=== PATIENT | female | born 1950 | race Caucasian/White ===

== ENCOUNTER 2018-10-08 13:08 | Inpatient (IN) | payer OTHER ==
[~2018-10-08] VITALS: Ht 160 cm; Wt 102.1 kg
--- NOTE | ~2018-10-08 | OP ---
[address] [address] OPERATIVE REPORT Name: MEGGAN HULL Room: [address] IN M.R.#: [id number] Admission: 10/08/18 Attend Phys: Martin Peña MD Discharge: 10/10/18 Date of : 50 Report #: [id number] THIS REPORT FOR: //name// CC: Tiara Peña DICTATED BY: Reinaldo Baker DO DATE OF SERVICE: 10/10/2018 This is Reinaldo Baker DO, PGY-2 dictating for Harika Perera DO PREOPERATIVE DIAGNOSIS: Gallstone pancreatitis. POSTOPERATIVE DIAGNOSES: Gallstone pancreatitis and acute cholecystitis with cholelithiasis. FINDINGS: Large stone in the gallbladder, CBD and hepatic ducts were dilated, but without obstruction. SURGEON: Harika Perera DO. CO-SURGEON: Reinaldo Baker DO, PGY-2. CYBER INSTRUCTOR: Luis Manuel Resendiz MS3. OPERATION PERFORMED: Laparoscopic cholecystectomy with intraoperative cholangiogram and surgeon interpretation of images. ANESTHESIA TYPE: General and local. ESTIMATED BLOOD LOSS: 20. SPECIMEN: Gallbladder. COMPLICATIONS: None. CONDITION: Stable. DISPOSITION: PACU to floor with possible discharge once tolerating diet, pain controlled with p.o. meds and ambulates. INDICATION FOR PROCEDURE: The patient is a pleasant 68-year-old female who presented to [facility] with chief complaint of right upper quadrant and epigastric abdominal pain. The patient was found to have gallstone pancreatitis with elevated lipase and LFTs. Her LFTs and lipase trended down [facility] [address] [place] [address] OPERATIVE REPORT Name: LU DOMINGUEZMEGGAN Room: [address] IN [facility].#: [id number] Admission: 10/08/18 Attend Phys: Martin Peña MD Discharge: 10/10/18 Date of : 50 Report #: [id number] over the next 2 days. The patient had an MRCP that showed cholecystitis with cholelithiasis without obstruction. The patient was subsequently recommended laparoscopic cholecystectomy with intraoperative cholangiogram and the patient agreed. Full discussion of procedure, alternatives, risks and possible complications discussed include but not limited to bleeding, infection, postoperative pain, scarring, hernia, conversion to open procedure, injury to other abdominal organs mainly stomach, bile ducts and liver, if bile duct injury were to occur, transfer to tertiary care facility for possible further surgical intervention by hepatobiliary specialist and anesthesia risks. The patient voiced understanding of the risks and agreed to proceed with surgery. OPERATIVE TECHNIQUE: The patient was again seen and examined in preoperative holding. Fully informed written consent was obtained. Preoperative antibiotics 600 mg of clindamycin was given. The patient was subsequently transported to the operating room suite, placed on the operating room table in supine position. At this time, anesthesia induced general endotracheal intubation and general anesthesia was successful. A footboard was placed at the feet, bilateral lower extremity SCDs were placed to calves. The patient's left arm was placed on arm boards out at the side, right arm was tucked, all the patient's extremities and joints were padded and protected. The patient was prepped and draped using standard sterile fashion. Time-out was performed prior to the onset of procedure began. The patient has a reducible umbilical hernia. A 10 mL of 0.5% Marcaine was injected superior to the umbilicus. Vertical skin incision was made superior to the umbilicus. Using open Mauricio technique, we dissected down through dermis and subcutaneous tissue to reach the level of the fascia. Fascia was grasped with bilateral Kochers, elevated and transected with electrocautery. After this was performed, the peritoneum was pierced using a hemostat. A finger sweep was performed to ensure we were into the abdomen and there were no adhesions. Two 0 Vicryl stay sutures were placed on the fascial edges, 12 mm Chaim trocar was placed into the abdomen. The abdomen was insufflated, first using low flow then high flow. The patient was placed in reverse Trendelenburg with left side down. A 5 mm laparoscopic 0 degree camera was placed into the abdomen, noting no injury to underlying structures on entry into the abdomen. We surveyed the right upper quadrant. There was noted to be dense omental adhesions over the liver as well as omental adhesions to the right upper quadrant just inferior to the costal margin, 10 mm trocar was placed in the epigastric region, two additional 5 mm trocars were placed in the right upper quadrant. Right upper quadrant adhesions were taken down as well as omental adhesions over the liver. Gallbladder was grasped with a locking wavy grasper, elevated anteriorly and cephalad. Peritoneal and omental attachments were taken down using electrocautery to the level of Taras's pouch. Gallbladder was noted to be very distended, very edematous with lots of edema and acute inflammation. Once Taras's pouch was noted, it was grasped with the blunt grasper. Dissection was began anterior aspect and lateral edge of the gallbladder peritoneum. This was taken using electrocautery. Dissection was carried out laterally to the liver edge. Cystic duct [place] [address] OPERATIVE REPORT Name: MEGGAN HULL Room: [address]#: [id number] Admission: 10/08/18 Attend Phys: Martin Peña MD Discharge: 10/10/18 Date of : 50 Report #: [id number] dissected out circumferentially. Once the cystic duct was dissected out with [place] grasper circumferentially, they noted that the cystic artery was just anterior and medial to this in the gallbladder peritoneal fat. This was also dissected out circumferentially with [place] grasper. At this time, a Brunson clamp was placed across the inferior aspect of Taras's pouch and catheter was placed into the cystic duct. Intraoperative cholangiogram was obtained noted a grossly dilated common bile duct with normal filling of the common bile duct, hepatic ducts both intra and extrahepatic as well as the cystic duct. There was noted to be flow into the duodenum. I did not see any causes of obstruction or retained stones. C-arm was removed from the bedside. Gallbladder was grasped and elevated again. Clips were then placed to the distal cystic duct x 3 proximally near the gallbladder x 2. This was also clipped of the cystic artery distally twice, proximally once. Cystic duct and artery were then transected using laparoscopic scissors. Gallbladder was then resected off of the liver bed using electrocautery. There was a very large what appeared to be the right hepatic artery near the posterior aspect of the gallbladder, posterior Taras's pouch, this was gently dissected superior to this using [place] grasper. There was noted to be a small branch coming off of the right hepatic artery that traversed posteriorly into the gallbladder. This was clipped distally and proximally and transected using electrocautery. The remainder of the dissection was carried out to excise the gallbladder from the gallbladder fossa. Gallbladder was then placed in a 10 mm EndoCatch bag through the umbilical trocar. Once this was obtained, liver bed was evaluated and hemostasis was achieved using electrocautery. Duct and artery clips were then reevaluated and noted to be no hemorrhaging or bile ducts from these. Intraoperative pictures were taken. Of note, critical view of safety was obtained prior to cholangiogram and clipping and transection of the cystic duct and artery and an intraoperative picture of the critical view of safety was obtained as well. Surgicel was placed in the gallbladder fossa. Right upper quadrant was copiously irrigated and suctioned. We then used laparoscopic camera through the epigastric trocar to evaluate the patient's reducible umbilical hernia. Intraoperative picture of this was also obtained. Her abdomen was desufflated under direct visualization, epigastric and right upper quadrant trocars were removed. Once the abdomen was fully desufflated, the Chaim trocar was removed and EndoCatch bag with the gallbladder was then pulled through the umbilical incision noting to be a very large approximately 5 x 4 cm stone in the gallbladder. Kochers were again placed on the fascial edges. Fascia was closed using 0 Vicryl on a UR-6 in a [id number]-[id number] fashion. Layered closure was then performed with 3-0 interrupted Vicryl closing the subcutaneous and deep dermal layers. Skin was closed using running 4-0 Monocryl. Dermal stitch with 3-0 Vicryl was placed in the epigastric incision. This was closed with 2 interrupted Monocryl and the two 5 mm right upper quadrant incisions were closed using interrupted 4-0 Monocryl. An additional 40 mL of 0.5% Marcaine was used for local anesthetic. Abdomen was cleansed using wet and dry lap, sterile dressing applied, Dermabond. The patient tolerated the procedure well and was extubated in the OR, transported to PACU in [address] [address] OPERATIVE REPORT Name: MEGGAN HULL Room: [address] IN [facility].#: [id number] Admission: 10/08/18 Attend Phys: Martin Peña MD Discharge: 10/10/18 Date of : 50 Report #: [id number] condition after brief recovery from anesthesia with plans to return to the floor for ongoing care with plans to possible discharge later this evening as long as the patient tolerates diet, pain control with p.o. meds and is able to ambulate. She will follow up in the office of Dr. Perera in 1 week. By: 1620 1750Chrudi Perera DO /nt
--- NOTE | ~2018-10-08 | CON ---
[address] [address] CONSULTATION Name: MEGGAN HULL Room: [address] IN .R.#: [id number] Admission: 10/08/18 Attend Phys: Martin Peña MD Discharge: Date of : 50 Report #: [id number] THIS REPORT FOR: //name// CC: Tiara Peña DICTATED BY: Mikki Camara [facility] DATE OF SERVICE: 10/09/2018 Please note, at the time of this dictation, the patient was seen and physically examined by myself. REASON FOR CONSULTATION: Abdominal pain, elevated LFTs. HISTORY OF PRESENT ILLNESS: This is a 68-year-old female presenting to the Emergency Room with right upper quadrant pain, nausea and vomiting, which has been worsening over the last couple of days. She states her pain is exacerbated with eating. She has had similar pains before and was told that was likely her gallbladder. She denies any fever or chills at this time. The patient has had an upper scope, which was done back in the 1980s in [place], [place], does not recall what it showed and she has never had a screening colonoscopy. ALLERGIES: PENICILLIN AND LATEX. MEDICATIONS: From home include Claritin, Joint Health Vitamin, a memory pill, B12, guaifenesin, vitamin D, aspirin. PAST MEDICAL HISTORY: Essentially negative. FAMILY HISTORY: Negative. SOCIAL HISTORY: Denies any alcohol, tobacco or illegal drug use. FAMILY HISTORY: Negative for any GI or female cancers. REVIEW OF SYSTEMS: Twelve-point review of systems is essentially negative except what is mentioned in the HPI. PHYSICAL EXAMINATION: VITAL SIGNS: Temperature 36.5, pulse 70, respirations 16, blood pressure 151/75. HEART: Regular rate and rhythm. LUNGS: Clear. ABDOMEN: Soft, positive bowel sounds in all 4 quadrants [place] [address] CONSULTATION Name: MEGGAN HULL Room: [address] IN [facility]#: [id number] Admission: 10/08/18 Attend Phys: Martin Peña MD Discharge: Date of : 50 Report #: [id number] tenderness noted. LABORATORY DATA: Hemoglobin 12.5, white count 7.8, platelets 210. PT 10.7, INR is 1, GFR is 55. On admission, total bilirubin 2.1, it is down to 0.5; alkaline phosphatase was 116, down to 99; ALT 565, down to 382; and AST 683, down to 216. CT of the abdomen and pelvis shows some edema around the gallbladder, but no stranding or any abnormality of the pancreas. Ultrasound revealed common bile duct to be in 4.9-6.6 mm in diameter, upper limit of normal. Liver appeared to be normal with some fatty infiltration. Pancreas appeared normal. There were several large stones that was noted in the gallbladder as well. IMPRESSION: 1. Right upper quadrant pain, resolved. 2. Nausea and vomiting, resolved. 3. Elevated LFTs. 4. Elevated lipase. 5. Acute cholecystitis. PLAN: 1. MRCP pending and depending on the results, we can make further recommendations. 2. We will keep patient n.p.o. until results of MRCP have been reviewed. 3. Further recommendations to be made once Dr. Huggins sees the patient and has reviewed the MRCP. Thank you for allowing us to participate in this patient's care. Please do not hesitate to call with any questions in regard to this consult. ADDENDUM I personally seen and examined the patient and reviewed labs and imaging studies. The patient reports that her symptoms started couple of days prior to admission, which was included with severe abdominal pain, which was acute associated with nausea and vomiting. She presented with evidence of cholecystitis and her bilirubin initially was 2, but now back to normal. She also has transaminitis. The patient had an ultrasound, which showed mildly dilated common bile duct to 6.6 mm. MRCP was done today, which shows completely normal bile duct without any evidence of choledocholithiasis. She currently denies any abdominal pain, nausea, and vomiting. Her AST and ALT are almost half of yesterday, still with value of 216 and 382. Her lipase is down to normal, down from 3092. The patient should proceed with laparoscopic cholecystectomy[place] [address] CONSULTATION Name: MEGGAN HULL Room: [address] IN ..#: [id number] Admission: 10/08/18 Attend Phys: Martin Peña MD Discharge: Date of : 50 Report #: [id number] recommend colonoscopy as she never had a screening colonoscopy. This will occur on outpatient basis. By: 1210 2316Jak Huggins MD /emilie
[2018-10-08 13:11] VITALS: BP 173/105
[2018-10-08] MEDS ORDERED: CLARITIN10 M2 PO (13:17)
[2018-10-08] MEDS ORDERED: JOINT HEALTH T1 EACH PO (13:18)
[2018-10-08] MEDS ORDERED: [UNRECOGNIZED DRUG - REMARK] PO (13:18)
[2018-10-08] MEDS ORDERED: VITAMIN B 12 PO (13:19)
[2018-10-08] MEDS ORDERED: MUCINEX100 MG PO (13:19)
[2018-10-08] MEDS ORDERED: MULTIVITAMINS1 EAC7 PO (13:20)
[2018-10-08] MEDS ORDERED: VITAMIN D-3 PO (13:20)
[2018-10-08] MEDS ORDERED: ASPIR 8181 MG PO (13:21)
[2018-10-08 13:45] LABS: ABSOLUTE BASOPHILS 0.1 thou/uL (0.0-0.2); ABSOLUTE LYMPHOCYTES 1.7 thou/uL (0.8-5.3); ABSOLUTE MONOCYTES 0.5 thou/uL (0.0-1.2); ABSOLUTE NEUTROPHILS 5.8 thou/uL (1.6-8.1); EOSINOPHILS 0.3 %; HEMATOCRIT 42.7 % (37.0-47.0); HEMOGLOBIN 14.5 gm/dL (12.0-15.0); LYMPHOCYTES 21.1 %; MCH 30.5 pg (26.0-34.0); MCV 89.6 fL (80.0-100.0); MONOCYTES 6.7 %; MPV 9.1 fl. (7.2-11.1); NUCLEATED RBCS 0 /100WBC; PLATELET COUNT* 261 thou/uL (150-400); POLYS 70.9 %; RBC 4.77 mil/uL (4.20-5.00); WBC 8.2 thou/uL (4.0-11.0)
[2018-10-08 14:00] LABS: ALBUMIN 3.4 g/dL (3.4-5.0); CALCIUM 8.6 mg/dL (8.5-10.1); CREATININE 0.9 mg/dL (0.6-1.3); POTASSIUM 3.9 mmol/L (3.5-5.1); TOTAL BILIRUBIN 2.1 mg/dL (<0.1-1.0)
[2018-10-08 15:28] LABS: URINE BILIRUBIN NEGATIVE (Negative); URINE BLOOD NEGATIVE (Negative); URINE CLARITY CLEAR; URINE COLOR YELLOW; URINE GLUCOSE-RANDOM NEGATIVE (Negative); URINE KETONES NEGATIVE (Negative); URINE LEUKOCYTES-REFLEX NEGATIVE (Negative); URINE NITRITE-REFLEX NEGATIVE (Negative); URINE PROTEIN NEGATIVE (Negative); URINE UROBILINOGEN 0.2 E.U./dl (0.2-1.0)
--- NOTE | 2018-10-08 16:54 | EKG ---
[place] [address] ELECTROCARDIOGRAM REPORT Name: MEGGAN HULL Room: [facility]#: [id number] Admission: 10/08/18 Attend Phys: Discharge: Date of : 50 Report #: [id number] THIS REPORT FOR: //name// [facility] ED Test Date: 2018-10-08 Test Time: 13:45:01 Pat Name: MEGGAN DOMINGUEZ Department: Room: Gender: F Skilled Nursing Facility Counselor: : 1950 Requested By: Chrystal Alcala Order Number: [id number] MD: Luis Manuel Jeffrey Measurements Intervals [place] Rate: 68 P: 73 VT: 171 QRS: 53 QRSD: 84 T: 50 QT: 409 QTc: 436 Interpretive Statements Sinus rhythm No previous ECG available for comparison Electronically Signed On 10-08-2018 16:54:13 CDT by Luis Manuel Jeffrey [email or web address] <ELECTRONICALLY SIGNED> By: Luis Manuel Jeffrey MD, [facility] 10/08/18 1654 1345 1345 Luis Manuel Jeffrey MD, FACC /EPI
[2018-10-08 18:53] VITALS: BP 113/60
[2018-10-08 21:20] VITALS: BP 151/75
[2018-10-08 21:22] VITALS: BP 138/65
[2018-10-08 21:30] VITALS: BP 151/75
[2018-10-08 21:47] LABS: AMP/METHAMP Negative (Negative); BARBITURATES Negative (Negative); BENZODIAZEPINES Negative (Negative); COCAINE Negative (Negative); METHADONE Negative (Negative); OPIATES POSITIVE (Negative); PCP Negative (Negative); THC Negative (Negative)
[2018-10-09 04:09] LABS: ABSOLUTE BASOPHILS 0.1 thou/uL (0.0-0.2); ABSOLUTE EOSINOPHILS 0.2 thou/uL (0.0-0.7); ABSOLUTE LYMPHOCYTES 2.7 thou/uL (0.8-5.3); ABSOLUTE MONOCYTES 0.5 thou/uL (0.0-1.2); ABSOLUTE NEUTROPHILS 4.4 thou/uL (1.6-8.1); BASOPHILS 0.7 %; EOSINOPHILS 2.5 %; HEMATOCRIT 36.9 % (37.0-47.0); MCH 30.5 pg (26.0-34.0); MCHC 33.8 g/dL (28.0-37.0); MCV 90.1 fL (80.0-100.0); MONOCYTES 6.9 %; MPV 9.1 fl. (7.2-11.1); NUCLEATED RBCS 0 /100WBC; PLATELET COUNT* 210 thou/uL (150-400); POLYS 55.9 %; RBC 4.09 mil/uL (4.20-5.00); RDW-CV 13.3 % (10.5-14.5); WBC 7.8 thou/uL (4.0-11.0)
[2018-10-09 04:22] LABS: APTT 27.1 Seconds (25.0-31.3); PROTIME 10.7 Seconds (9.20-11.50)
[2018-10-09 04:53] LABS: HEMOGLOBIN 12.5 gm/dL (12.0-15.0)
--- NOTE | 2018-10-09 05:27 | NUR ---
PT ARRIVED ON UNIT FROM ER AT 2130 ASSISTED TO ROOM ORIENTED TO SUROUNDINGS. VS AND ASSESSMENT STABLE PT HAD ZOFRAN ONCE FOR NAUSEA AND REQUESTED SOMETHING FOR A HEADACHE CONTACTED DR HATCH OBTAINED ORDERS FOR X1. NO FURTHER COMPLAINTS. WILL CONTINUE PLAN OF CARE.
[2018-10-09 08:00] VITALS: BP 138/54
[2018-10-09 10:42] LABS: ALBUMIN 2.7 g/dL (3.4-5.0); ALKALINE PHOSPHATASE 99 U/L (46-116); ANION GAP 5 mmol/L (7-16); BUN 11 mg/dL (7-18); CALCIUM 7.6 mg/dL (8.5-10.1); CHLORIDE 110 mmol/L (98-107); CO2 31 mmol/L (21-32); DIRECT BILIRUBIN 0.1 mg/dL (<0.1-0.3); GLUCOSE 98 mg/dL (70-99); LIPASE 250 U/L (73-393); MAGNESIUM 1.9 mg/dL (1.8-2.4); SERUM ASSESSMENT Clear; SGOT 216 U/L (15-37); SGPT 382 U/L (30-65); SODIUM 146 mmol/L (136-145); TOTAL BILIRUBIN 0.5 mg/dL (<0.1-1.0); TOTAL PROTEIN 5.5 g/dL (6.4-8.2)
[2018-10-09 13:35] LABS: CHOLESTEROL 171 mg/dL (<200); HDL CHOLESTEROL 47 mg/dL (>40); LDL CHOLESTEROL 98 mg/dL (<100); TC:HDL 3.6 Ratio (Not establshd); TRIGLYCERIDE 133 mg/dL (<150); VLDL 27 mg/dL (<40)
--- NOTE | 2018-10-09 16:54 | NUR ---
SPOKE WITH PT. ,WHO WAS ALERT AND ORIENTED. SHE SAID SHE LIVES WITH HER . HE WAS IN THE HOSPITAL A FEW WEEKS AGO WITH HEART FAILURE SO HE REALLY WON'T BE ABLE TO HELP HER AT DISCHARGE. HER FRIENDS AND CHILDREN ARE SUPPORTIVE. NO USE OF DME. SHE WORKS ACCOUNTING MANAGER CONTROLLER. SHE WILL NOT HAVE ANY DISCHARGE NEEDS.
--- NOTE | 2018-10-09 16:54 | NUR ---
PT LEFT THE UNIT AT 1615. IV DISCHARGED. PT EDUCATED ON NEW MED SCRIPS AND D/C INSTRUCTION. PT VERBALIZED UNDERSTANDING. ALL BELONGING LEFT WITH THE PT.
[2018-10-09 16:58] VITALS: BP 152/74
--- NOTE | 2018-10-09 18:34 | NUR ---
PT REMAINED A&O X 4. VITALS, SpO2 STABLE. PAIN WELL MANAGED WITH MEDS. DIET CHANGED FROM NPO TO CLEAR LIQUID. PT TOLERATED WITHOUT NAUSEA AND VOMITING. UP AD CESAR. CALL LIGHT WITHIN REACH. PT EDUCATED ON MEDS, CARE PLAN AND VERBALIZED UNDERSTANDING. WILL CONTINUE TO MONITOR.
[2018-10-09 19:50] VITALS: BP 154/78
[2018-10-10] VITALS (7 sets, daily range): BP systolic 153–167; BP diastolic 66–79
[2018-10-10 04:04] LABS: HEMATOCRIT 36.7 % (37.0-47.0); HEMOGLOBIN 12.4 gm/dL (12.0-15.0); MCH 30.6 pg (26.0-34.0); MCHC 33.9 g/dL (28.0-37.0); MCV 90.2 fL (80.0-100.0); MPV 9.4 fl. (7.2-11.1); RBC 4.07 mil/uL (4.20-5.00); RDW-CV 13.4 % (10.5-14.5); WBC 6.4 thou/uL (4.0-11.0)
[2018-10-10 04:30] LABS: ALBUMIN 2.8 g/dL (3.4-5.0); CALCIUM 7.9 mg/dL (8.5-10.1); CREATININE 0.8 mg/dL (0.6-1.3); POTASSIUM 3.9 mmol/L (3.5-5.1); TOTAL BILIRUBIN 0.4 mg/dL (<0.1-1.0); TOTAL PROTEIN 5.7 g/dL (6.4-8.2)
--- NOTE | 2018-10-10 04:40 | NUR ---
PATIENT ALERT AND ORIENTED X 4 THROUGHOUT THE SHIFT AND RESTING QUIETLY ON HOURLY ROUNDS. UP INDEPENDENTLY IN THE ROOM. MEDICATED X 1 FOR ABDOMINAL PAIN TO GOOD EFFECT. VITAL SIGNS STABLE. SHOWERED HS. NPO AT MIDNIGHT. CONTINUE TO MONITOR.
--- NOTE | 2018-10-10 18:08 | NUR ---
PT CAME BACK FROM SURGERY AT 1700. A&O X 4. VITALS WITHIN NORMAL RANGE. TOLERATED LIQUID DIET WELL. CALL LIGHT WITHIN REACH. HOURLY ROUNDING COMPLETED. BED ALARM ON. SCRIPTS GIVENT TO . WILL CONTINUE TO MONITOR.
[2018-10-10] MEDS ORDERED: OXYCODONE HCL 55 MG PO (19:43)
--- NOTE | 2018-10-10 21:20 | NUR ---
PATIENT HAS MET DISCHARGE CRITERIA: UP AMBULATING IN ROOM INDEPENDENTLY WITH STEADY GAIT, NO DIZZINESS. VOIDED X 2 POST-OP IN ADEQUATE AMOUNTS WITHOUT DIFFICULTY. REGULAR DIET WITHOUT NAUSEA. O2 WEANED WITH ROOM AIR SAT 95%. VITAL SIGNS STABLE. DERMABOND X 4 INTACT TO LAP SITES OF ABDOMEN. PAIN MEDICATION PROVIDED TO TOLERANCE AND GOOD EFFECT. DISCHARGE ORDERS FROM HOSPITALIST AND SURGERY. IV REMOVED. DISCHARGE INSTRUCTIONS REVIEWED AND PATIENT COPY PROVIDED WITH PAIN MEDICATION MONOGRAPH. PRESCRIPTION FOR SAME GIVEN TO FOR PHARMACY FILLING BY DAYSHIFT. PATIENT ESCORTED TO VEHICLE BY WHEELCHAIR WITH ALL BELONGINGS. DISCHARGED IN STABLE CONDITION.
--- NOTE | 2018-10-11 00:43 | NUR ---
ORDER FOR DISCHARGE BY HOSPITALIST RECEIVED AT 199910/10/18. UNABLE TO ENTER INTO [facility] AT THIS TIME DUE TO COMPUTER ENTRY FORMAT. PATIENT WAS DISMISSED 10/10/18 PER ORDER. SEE ABOVE ENTRY. THIS IS A POST DISCHARGE ENTRY NOTE.
--- NOTE | 2018-10-14 11:08 | PATH ---
[facility] [address] [place] [address] PATHOLOGY RPT PROCEDURE Name: MEGGAN HOPKINS Room: [address] IN .R.#: [id number] Admission: 10/08/18 Date of : 50 Discharge: 10/10/18 Report #: [id number] Path Case #: [id number] [facility] Accession Number: [id number] . 01 Material submitted: . GALLBLADDER . 01 Clinical history: . Gallstone pancreatitis, cholecystitis with cholelithiasis. . 02 Diagnosis: Gallbladder: - Chronic cholecystitis and cholelithiasis. (FITZ:aguila; 10/13/2018) MBR/10/13/2018 . 02 Electronically signed: . Stewart Grove MD, Pathologist NPI- [id number] . 01 Gross description: . Received in formalin labeled "Meggan Hopkins, gallbladder" is an intact cholecystectomy specimen measuring 8.6 x 3.9 x 3.6 cm. The serosa is pink-matthews and focally ragged. The specimen is opened to reveal yellow-green velvety mucosa and an average wall thickness of 0.2 cm. No polyps or masses are identified. A 4.2 x 3.3 x 2.3 cm ovoid matthews-green calculus is present. [employer] sections of the fundus and body and the cystic duct margin are submitted in cassette A1. ([facility] [place]; 10/10/2018) SYC/SYC . 02 Pathologist provided ICD-10: K80.10 . 02 CPT . 023882 Specimen Comment: A courtesy copy of this report has been sent to Specimen Comment: [phone], , . Specimen Comment: Report sent to ,DR HATCH / DR LEAHY Performed at: [address], [place], [place] [id number] MD Jevon Solis MD Phone: [phone] Performed at: [address] [facility] [address] [address] [place], [place] [id number] MD Stewart Grove MD Phone: [phone]
== END 2018-10-10 21:20 | disposition home or self-care (01) | DRG 417 ==
LOC: M.ERS 13:08 → M.ORTHSURG 16:54 → M.TBA-ER 16:54 → M.ORTHSURG 21:31
PROVIDERS: Nurse Practitioner Family; Surgery; ADMIT Family Medicine
PROC: BF121ZZ Fluoroscopy of Gallbladder using Low Osmolar Contrast (ICD-10-PCS; principal; 2018-10-10)
PROC: 0DNU4ZZ Release Omentum, Percutaneous Endoscopic Approach (ICD-10-PCS; principal; 2018-10-10)
PROC: 0FN04ZZ Release Liver, Percutaneous Endoscopic Approach (ICD-10-PCS; principal; 2018-10-10)
PROC: 0FT44ZZ Resection of Gallbladder, Percutaneous Endoscopic Approach (ICD-10-PCS; principal; 2018-10-10)
DX: K80.00 Calculus of gallbladder with acute cholecystitis without obstruction (principal); K85.10 Biliary acute pancreatitis without necrosis or infection; E80.6 Other disorders of bilirubin metabolism; R74.0 Nonspecific elevation of levels of transaminase and lactic acid dehydrogenase [LDH]; K66.0 Peritoneal adhesions (postprocedural) (postinfection); K42.9 Umbilical hernia without obstruction or gangrene; Z88.0 Allergy status to penicillin; Z91.040 Latex allergy status; Z79.82 Long term (current) use of aspirin; Z79.899 Other long term (current) drug therapy; Z82.49 Family history of ischemic heart disease and other diseases of the circulatory system; Z90.49 Acquired absence of other specified parts of digestive tract; Z83.79 Family history of other diseases of the digestive system